=== PATIENT | male | born 1950 | race Caucasian/White ===

== ENCOUNTER 2019-01-18 20:23 | Inpatient (IN) | payer MEDICARE | END 2019-01-20 19:50 | disposition home health service (06) | LOC: ER 20:23 → TELE 23:10 → TELE-CENTR 23:32 | DX: I95.9 Hypotension, unspecified (principal); G92 Toxic encephalopathy; E44.1 Mild protein-calorie malnutrition; I10 Essential (primary) hypertension; E11.649 Type 2 diabetes mellitus with hypoglycemia without coma; G40.909 Epilepsy, unspecified, not intractable, without status epilepticus ==

== ENCOUNTER 2019-12-09 20:25 | Inpatient (IN) | payer MEDICARE, OTHER ==
[~2019-12-09] VITALS: Ht 167.6 cm; Wt 88.2 kg
[~2019-12-09 20:25] MED LIST: ALLO100T PO; ASPI-492 PO; ATOR1TAB PO; CARB1TAB44 PO; DONE10TA40 PO; FINA5TAB4 PO; GLIP5TAB12 PO; LEVE250T18 PO; LISI-648 PO; LORA-655 PO; MECL25TA18 PO; MEMA1TAB5 PO; METF500S PO; METO25TA93 PO; ONDA-144 PO; QUET100T46 PO; TAM04C PO; TIZA4CAP PO; TRAZ100T3 PO
[2019-12-09] MEDS ORDERED: LORazepam 2MG/ML-1ML VIAL IV ONE (21:00)
[2019-12-09] MEDS ORDERED: SODIUM CHLORIDE 0.9% 1,000 ML IVB ONE (21:24)
[2019-12-09 21:34] LABS: Basophils # (auto) 0.1 10 ^3/uL (0-0.2); Basophils % (auto) 0.7 % (0.0-2.0); Eosinophils # (auto) 0.1 10 ^3/uL (0-0.8); Eosinophils % (auto) 1.2 % (0.0-7.0); Hematocrit 43.7 % (41.0-53.0); Hemoglobin 14.5 g/dL (13.5-17.5); Lymphocytes # (auto) 1.8 10 ^3/uL (0.4-5.4); Lymphocytes % (auto) 21.7 % (10.0-50.0); Mean Corpuscular Hemoglobin 30.3 pg (28.0-32.0); Mean Corpuscular Hgb Conc. 33.1 g/dL (32.0-36.0); Mean Corpuscular Volume 91.7 fL (80.0-100.0); Monocytes # (auto) 0.5 10 ^3/uL (0-1.3); Monocytes % (auto) 6.6 % (0.0-12.0); Neutrophils # (auto) 5.8 10 ^3/uL (1.6-8.6); Neutrophils % (auto) 69.8 % (37.0-80.0); Nucleated Red Blood Cells % 0.1 %; Platelet Count (auto) 199 10^3/uL (140-450); Red Blood Cells 4.77 10^6/uL (4.5-5.90); Red Cell Distribution Width 13.9 % (11.8-14.3); White Blood Cell 8.2 10^3/uL (4.4-10.8)
[2019-12-09 21:37] LABS: Urine Bacteria NONE SEEN /hpf (None Seen); Urine Blood Negative /uL (Negative); Urine Specific Gravity 1.036 (1.001-1.035); Urine WBC 2 /hpf (0 - 3)
[2019-12-09 21:44] LABS: Alanine Aminotransferase 16 U/L (16-61); Albumin 3.3 g/dL (3.4-5.0); Anion Gap 7 (5-15); Aspartate Aminotransferase 9 U/L (15-37); Blood Urea Nitrogen 14 mg/dL (7-18); Calcium 8.7 mg/dL (8.5-10.1); Carbon Dioxide 29 mmol/L (21-32); Chloride 97 mmol/L (98-107); Glucose 352 mg/dL (74-106); Magnesium 1.4 mg/dL (1.6-2.6); Potassium 3.8 mmol/L (3.5-5.1); Sodium 133 mmol/L (136-145)
[2019-12-09 21:49] LABS: Alkaline Phosphatase 108 U/L (45-117); BUN/Creatinine Ratio 13.7; Bilirubin, Total 0.4 mg/dL (0.2-1.0); GFR African American 93 mL/min; GFR Non-African American 77 mL/min; Total Protein 7.5 g/dL (6.4-8.2)
[2019-12-09] MEDS: SODIUM CHLORIDE 0.9% 1,000 ML IV SCH (22:14)
[2019-12-09] MEDS ORDERED: ONDANSETRON ODT 4 MG TAB PO PRN (22:15)
[2019-12-09] MEDS ORDERED: ONDANSETRON HCL 4 MG/2 ML VIAL IV PRN (22:15)
[2019-12-09] MEDS ORDERED: LORazepam 0.5 MG TAB PO PRN (22:15)
[2019-12-09] MEDS ORDERED: MECLIZINE HCL 25 MG TAB PO PRN (22:15)
[2019-12-09] MEDS ORDERED: DOCUSATE SOD 100 MG CAP PO PRN (22:15)
[2019-12-09] MEDS ORDERED: DEXTROSE (50%) 50ML SYRG IV PRN (22:15)
[2019-12-09] MEDS ORDERED: ACETAMINOPHEN 325 MG TAB PO PRN (22:15)
[2019-12-09 22:42] LABS: INR 2.97 (0.9-1.15)
[2019-12-09 22:43] LABS: Partial Thromboplastin Time 28.4 sec (23.64-32.05)
[2019-12-09 23:55] VITALS: BP 121/72
--- NOTE | 2019-12-09 23:58 | NUR ---
Telemetry admit from ER Patient admitted to Telemetry unit. Patient oriented to primary RN, unit, room, bed, and unit policies regarding patient care and visiting hours. At this time patient alert and oriented x 4 and has no s/s of distress or SOB. Patient now on continuous telemetry monitoring, tele box # [id number] and telemetry reading on arrival to unit is sinus rhythm. Patient placed on bedside oxygen 2L NC SPO2 98%, weighed by bedscale and encouraged to call if they need something. All questions and concerns addressed, patient verbalized understanding. Seizure precautions in place suction and padded side rails 2X. Safety precautions maintained bed is in lowest position and locked, bed rails 2x. Call light and bedside table are within reach.
[2019-12-10] MEDS: InsuLIN REG 1unit/0.01ml Soln (100units/ml) SC SCH ×7 (01:02→23:59)
[2019-12-10] MEDS ORDERED: LORazepam 2MG/ML-1ML VIAL IV PRN (01:30)
[2019-12-10] MEDS ORDERED: levETIRAcetam 500 MG/5ML INJ IV ONE (01:31)
[2019-12-10] MEDS ORDERED: LEVE100012 PO (01:51)
[2019-12-10] MEDS: ACCU-CHEK COMFORT CURVE STRIP VI SCH ×7 (04:13→23:54)
[2019-12-10 05:00] VITALS: BP 104/61
[2019-12-10 05:28] LABS: Basophils # (auto) 0.1 10 ^3/uL (0-0.2); Basophils % (auto) 0.8 % (0.0-2.0); Eosinophils # (auto) 0.1 10 ^3/uL (0-0.8); Eosinophils % (auto) 1.2 % (0.0-7.0); Hematocrit 39.1 % (41.0-53.0); Hemoglobin 13.2 g/dL (13.5-17.5); Lymphocytes # (auto) 2.2 10 ^3/uL (0.4-5.4); Lymphocytes % (auto) 25.5 % (10.0-50.0); Mean Corpuscular Hemoglobin 30.8 pg (28.0-32.0); Mean Corpuscular Hgb Conc. 33.7 g/dL (32.0-36.0); Mean Corpuscular Volume 91.6 fL (80.0-100.0); Monocytes # (auto) 0.6 10 ^3/uL (0-1.3); Monocytes % (auto) 6.8 % (0.0-12.0); Neutrophils # (auto) 5.7 10 ^3/uL (1.6-8.6); Neutrophils % (auto) 65.7 % (37.0-80.0); Nucleated Red Blood Cells % 0.1 %; Platelet Count (auto) 182 10^3/uL (140-450); Red Blood Cells 4.28 10^6/uL (4.5-5.90); Red Cell Distribution Width 13.5 % (11.8-14.3); White Blood Cell 8.7 10^3/uL (4.4-10.8)
[2019-12-10 05:49] LABS: BUN/Creatinine Ratio 16.7; Calcium 8.3 mg/dL (8.5-10.1); Potassium 3.4 mmol/L (3.5-5.1)
--- NOTE | 2019-12-10 07:25 | NUR ---
End of Shift Note Endorsed care to Marielena RN. At this time patient has no s/s of distress or SOB, awakens to name and touch, no complaints.
--- NOTE | 2019-12-10 07:27 | NUR ---
Opening Shift Note: Assumed care of patient, awake and alert. No S/S of distress/SOB or pain. Bed in lowest locked position, side rails up x 2, call light within reach. Patient instructed on POC and to call for assist PRN, will continue to monitor for changes Q1hr and PRN.
--- NOTE | 2019-12-10 07:30 | NUR ---
Side rails padded for patient safety.
[2019-12-10 09:00] VITALS: BP 114/66
[2019-12-10] MEDS: ASPirin-EC 81 mg tab PO SCH ×2 (09:46→23:37)
[2019-12-10] MEDS: ALLOPURINOL 100 MG TAB PO SCH (09:47)
[2019-12-10] MEDS: TAMSULOSIN HYDROCHLORIDE 0.4 MG CAP PO SCH (09:47)
[2019-12-10] MEDS: FINASTERIDE 5 MG TAB PO SCH (09:47)
[2019-12-10] MEDS: DONEPEZIL HYDROCHLORIDE 5 MG TAB PO SCH (09:47)
[2019-12-10] MEDS: METOPROLOL SUCCINATE XL 50 MG TAB PO SCH (09:49)
[2019-12-10] MEDS: QUEtiapine FUMARATE 100 MG TAB PO SCH (09:49)
[2019-12-10] MEDS: LISINOPRIL 10 MG TAB PO SCH (09:49)
[2019-12-10] MEDS: MEMANTINE HCL 5 MG TAB PO SCH (09:49)
[2019-12-10] MEDS ORDERED: CARBIDOPA W LEVODOPA 25/100mg TABLET PO SCH (10:00)
[2019-12-10 13:00] VITALS: BP 112/65
[2019-12-10] MEDS: SODIUM CHLORIDE 0.9% 1,000 ML IV SCH (14:54)
[2019-12-10 17:00] VITALS: BP 129/80
--- NOTE | 2019-12-10 19:03 | NUR ---
CLOSING NOTE: Patient resting in bed. No S/S of pain distress, or SOB. Care endorsed to NOC RN.
--- NOTE | 2019-12-10 19:15 | NUR ---
Opening Shift Note Assumed care of patient, awake and alert. No S/S of distress/SOB or pain, alert and oriented x4. Patient on 2L NC PRN and tolerating well SPO2 98%. Instructed on POC and to call for assist PRN, will continue to monitor for changes Q1hr and PRN. Seizure precautions in place padded side rails and suction at bedside. Safety precautions in place, bed is in lowest position and locked, bed rails 2x. Call light and bedside table are within reach.
[2019-12-10 22:00] VITALS: BP 112/70
[2019-12-10] MEDS ORDERED: ATORVASTATIN 20 MG TAB PO SCH (22:00)
[2019-12-10] MEDS ORDERED: traZODone HCL 50 MG TAB PO SCH (23:38)
[2019-12-11] MEDS: ACCU-CHEK COMFORT CURVE STRIP VI SCH ×3 (04:24→12:04)
[2019-12-11] MEDS: InsuLIN REG 1unit/0.01ml Soln (100units/ml) SC SCH ×3 (04:27→12:04)
[2019-12-11 05:00] VITALS: BP 110/65
--- NOTE | 2019-12-11 07:20 | NUR ---
End of Shift Note Endorsed care to Marielena RN. At this time patient has no s/s of distress or SOB, lying in bed and awakens to name and touch, has no complaints at this time. Seizure precautions are in place, padded side rails and suction at bedside.
--- NOTE | 2019-12-11 07:21 | NUR ---
Opening Shift Note: Assumed care of patient, patient asleep at this time. No S/S of distress/SOB or pain. Bed in lowest locked position, side rails up x 2, call light within reach. Side rails padded for patient safety. Patient will be instructed on POC and to call for assist PRN, will continue to monitor for changes Q1hr and PRN.
[2019-12-11] MEDS: SODIUM CHLORIDE 0.9% 1,000 ML IV SCH (07:36)
--- NOTE | 2019-12-11 08:45 | NUR ---
ELECTROENCEPHALOGRAM EEG COMPLETED AT BEDSIDE. PRIMARY RN MARGE INFORMED.
[2019-12-11 08:48] LABS: Folate (Folic Acid) 12.65 ng/mL (5.38-24)
[2019-12-11 09:00] VITALS: BP 92/57
[2019-12-11] MEDS: LISINOPRIL 10 MG TAB PO SCH (10:00)
[2019-12-11] MEDS: METOPROLOL SUCCINATE XL 50 MG TAB PO SCH (10:00)
[2019-12-11] MEDS: ASPirin-EC 81 mg tab PO SCH (10:17)
[2019-12-11] MEDS: TAMSULOSIN HYDROCHLORIDE 0.4 MG CAP PO SCH (10:19)
[2019-12-11] MEDS: MEMANTINE HCL 5 MG TAB PO SCH (10:24)
[2019-12-11] MEDS: QUEtiapine FUMARATE 100 MG TAB PO SCH (10:24)
[2019-12-11] MEDS: DONEPEZIL HYDROCHLORIDE 5 MG TAB PO SCH (10:24)
[2019-12-11] MEDS: ALLOPURINOL 100 MG TAB PO SCH (10:25)
[2019-12-11] MEDS: FINASTERIDE 5 MG TAB PO SCH (10:25)
[2019-12-11 12:44] VITALS: BP 92/57
[2019-12-11 13:00] VITALS: BP 139/90
[2019-12-11] MEDS ORDERED: traZODone HCL 50 MG TAB PO PRN (19:00)
--- NOTE | 2019-12-12 09:43 | NUR ---
Pt discharged prior to completion of social service consult for advance directive information.
== END 2019-12-11 14:02 | disposition home or self-care (01) | DRG 101 ==
LOC: EDBD 20:25 → ER 20:25 → TELE 20:26 → TELE-WESTW 23:54
PROVIDERS: ADMIT Hospitalist; ATTEND Family Medicine
DX: G40.409 Other generalized epilepsy and epileptic syndromes, not intractable, without status epilepticus (principal); G91.2 (Idiopathic) normal pressure hydrocephalus; E87.6 Hypokalemia; G20 Parkinson's disease; E11.65 Type 2 diabetes mellitus with hyperglycemia; F02.80 Dementia in other diseases classified elsewhere, unspecified severity, without behavioral disturbance, psychotic disturbance, mood disturbance, and anxiety; N40.1 Benign prostatic hyperplasia with lower urinary tract symptoms; E78.5 Hyperlipidemia, unspecified; F10.10 Alcohol abuse, uncomplicated; F17.200 Nicotine dependence, unspecified, uncomplicated; I10 Essential (primary) hypertension; I25.10 Atherosclerotic heart disease of native coronary artery without angina pectoris; Z79.899 Other long term (current) drug therapy; Z82.49 Family history of ischemic heart disease and other diseases of the circulatory system; Z83.3 Family history of diabetes mellitus; Z86.711 Personal history of pulmonary embolism; Z88.5 Allergy status to narcotic agent
CPT/HCPCS: 36415; 70450; 71045; 80048; 80053; 81001; 82542; 82607; 82746; 82962; 83036; 83735; 84443; 84484; 85025; 85610; 85730; 93005; 95819; 97163; G0378; J1815; J7060

== ENCOUNTER 2020-05-13 16:35 | Emergency (ER) | payer OTHER ==
[~2020-05-13] VITALS: Ht 172.7 cm; Wt 81.6 kg
[~2020-05-13 16:35] MED LIST changes: -CARB1TAB44 PO; -GLIP5TAB12 PO; +LEVE100012 PO; -LEVE250T18 PO
[2020-05-13] MEDS ORDERED: SODIUM CHLORIDE 0.9% 1,000 ML IV ONE (18:15)
[2020-05-13] MEDS ORDERED: InsuLIN REG 1unit/0.01ml Soln (100units/ml) IV ONE (18:15)
[2020-05-13 18:48] LABS: Basophils # (auto) 0.1 10 ^3/uL (0-0.2); Basophils % (auto) 0.8 % (0.0-2.0); Eosinophils # (auto) 0.1 10 ^3/uL (0-0.8); Eosinophils % (auto) 1.8 % (0.0-7.0); Hematocrit 42.3 % (41.0-53.0); Lymphocytes # (auto) 1.7 10 ^3/uL (0.4-5.4); Lymphocytes % (auto) 27.8 % (10.0-50.0); Mean Corpuscular Hemoglobin 30.3 pg (28.0-32.0); Mean Corpuscular Hgb Conc. 33.2 g/dL (32.0-36.0); Mean Corpuscular Volume 91.3 fL (80.0-100.0); Monocytes # (auto) 0.6 10 ^3/uL (0-1.3); Monocytes % (auto) 9.1 % (0.0-12.0); Neutrophils # (auto) 3.7 10 ^3/uL (1.6-8.6); Neutrophils % (auto) 60.5 % (37.0-80.0); Platelet Count (auto) 169 10^3/uL (140-450); Red Blood Cells 4.63 10^6/uL (4.5-5.90); Red Cell Distribution Width 14.3 % (11.8-14.3); White Blood Cell 6.1 10^3/uL (4.4-10.8)
[2020-05-13 18:56] LABS: INR 1.02 (0.9-1.15); Partial Thromboplastin Time 27.7 sec (23.0-31.2)
[2020-05-13 18:59] LABS: Alanine Aminotransferase 20 U/L (16-61); Albumin 3.5 g/dL (3.4-5.0); Anion Gap 5 (5-15); Aspartate Aminotransferase 11 U/L (15-37); BUN/Creatinine Ratio 15.5; Blood Urea Nitrogen 16 mg/dL (7-18); Calcium 8.9 mg/dL (8.5-10.1); Carbon Dioxide 28 mmol/L (21-32); Chloride 102 mmol/L (98-107); GFR African American 92 mL/min; GFR Non-African American 76 mL/min; Glucose 307 mg/dL (74-106); Magnesium 1.3 mg/dL (1.6-2.6); Potassium 5.1 mmol/L (3.5-5.1); Sodium 135 mmol/L (136-145)
[2020-05-13 19:04] LABS: Alkaline Phosphatase 106 U/L (45-117); Bilirubin, Total 0.5 mg/dL (0.2-1.0); Total Protein 7.2 g/dL (6.4-8.2)
[2020-05-13 19:10] LABS: Urine Bacteria NONE SEEN /hpf (None Seen); Urine Blood Negative /uL (Negative); Urine WBC 2 /hpf (0 - 3)
[2020-05-13 21:00] VITALS: BP 125/69
[2020-05-13] MEDS ORDERED: metroNIDAZOLE 500MG/100ML 100 ML IV ONE (21:15)
== END 2020-05-13 22:45 | disposition home or self-care (01) ==
LOC: ER 16:35 → EDBD 16:35 → ER 22:45
DX: E86.0 Dehydration (principal); K52.9 Noninfective gastroenteritis and colitis, unspecified; E11.65 Type 2 diabetes mellitus with hyperglycemia; F03.90 Unspecified dementia, unspecified severity, without behavioral disturbance, psychotic disturbance, mood disturbance, and anxiety; E78.5 Hyperlipidemia, unspecified; I10 Essential (primary) hypertension
CPT/HCPCS: 36415; 70450; 74176; 80053; 81001; 82962; 83735; 83880; 84443; 84484; 85025; 85379; 85610; 85730; 87086; 96361; 96365; 96375; 99285; J1815; J3490